=== PATIENT | female | born 1980 | race African-American/Black ===

== ENCOUNTER 2020-04-16 08:56 | Inpatient (IN) | payer BC ==
[~2020-04-16] VITALS: Ht 152.4 cm; Wt 70.7 kg
--- NOTE | ~2020-04-16 | O ---
[facility] [place] [address] OPERATIVE REPORT Name: SHERWIN CALIX Room #: 433-I ADM IN M.R.#: [id number] Admission: 04/16/20 Attend Phys: Jem Richter, Discharge: Date of : 82 Report #: [id number] THIS REPORT FOR: cc: [facility] - Clinic physician unknown [facility] - Clinic physician unknown Jem Richter MD ~ CC: [facility] unknown Jem Richter DATE OF SERVICE: 04/18/2020 PREOPERATIVE DIAGNOSIS: Acute cholecystitis. POSTOPERATIVE DIAGNOSIS: Acute cholecystitis. OPERATION: Laparoscopic cholecystectomy. SURGEON: Jem Richter MD ANESTHESIA: General. ESTIMATED BLOOD LOSS: 20 mL. SPECIMEN: Gallbladder. DESCRIPTION OF PROCEDURE: After informed consent was obtained, the patient was brought to the operating room and placed supine. SCDs were placed and working, preoperative antibiotics were administered, general anesthesia was induced. The abdomen was prepped and draped in the usual sterile fashion. A 10 mm incision was made below the umbilicus. Fascia was incised and a trocar was placed. Pneumoperitoneum was established. Three right upper quadrant 5 mm ports were placed. The gallbladder was grasped and retracted cephalad. There was very tense and edematous due to cholecystitis and therefore was decompressed with a decompressing needle. The gallbladder was then retracted superiorly. The infundibulum was grasped and retracted laterally. I dissected out the cystic duct and cystic artery. I dissected out the cystic plate fully. The cystic duct and artery were clipped and ligated, leaving 2 clips on the remaining duct and one on the remaining artery. Gallbladder was then taken off the liver bed with electrocautery. It was placed into an Endopouch and removed. The fascia was then closed with a [id number] 0 Vicryl. Skin was closed with 4-0 Monocryl. Incisions were sealed with Dermabond. COMPLICATIONS: None. [facility] [address] [place] [address] OPERATIVE REPORT Name: SHERWIN CALIX ADIN Room #: 433-I [facility] IN ..#: [id number] Admission: 04/16/20 Attend Phys: Jem Richter, Discharge: Date of : 82 Report #: [id number] DISPOSITION: The patient was taken to recovery in satisfactory condition. By: 1229 [id number] Jem Richter MD /nt
[~2020-04-16 08:56] MED LIST: CEPACOL SORE T1 EAC2 MM; FLAGYL500 MG PO; NAPROSYN500 MG PO
[2020-04-16 09:04] VITALS: BP 114/79
[2020-04-16 09:33] LABS: ABSOLUTE NEUTROPHILS 9.1 thou/uL (1.4-8.2); BASOPHILS 0.4 % (0.0-2.0); EOSINOPHILS 0.3 % (0.0-3.0); HEMATOCRIT 38.2 % (37.0-47.0); HEMOGLOBIN 12.7 gm/dL (12.0-15.0); LYMPHOCYTES 14.6 % (24.0-44.0); MCH 28.5 pg (26.0-34.0); MCHC 33.3 g/dL (28.0-37.0); MCV 85.6 fL (80.0-100.0); MONOCYTES 11.2 % (1.0-8.0); PLATELET COUNT 229 thou/uL (150-400); POLYS 73.5 % (36.0-66.0); RBC 4.46 mil/uL (4.20-5.00); RDW 13.5 % (10.5-14.5); WBC 12.3 thou/uL (4.0-11.0)
[2020-04-16 09:34] LABS: URINE BILIRUBIN NEGATIVE (Negative); URINE BLOOD TRACE (Negative); URINE CLARITY CLEAR; URINE COLOR YELLOW; URINE GLUCOSE-RANDOM* NEGATIVE (Negative); URINE KETONES NEGATIVE (Negative); URINE LEUKOCYTES-REFLEX NEGATIVE (Negative); URINE NITRITE-REFLEX NEGATIVE (Negative); URINE PROTEIN (DIPSTICK) NEGATIVE (Negative); URINE SPECIFIC GRAVITY >= 1.030 (1.005-1.035); URINE UROBILINOGEN 0.2 E.U./dl (0.2-1.0)
[2020-04-16 09:43] LABS: ANION GAP 9 mmol/L (7-16); BUN 11 mg/dL (7-18); CALCIUM 8.5 mg/dL (8.5-10.1); CHLORIDE 103 mmol/L (98-107); CO2 26 mmol/L (21-32); CREATININE 0.7 mg/dL (0.6-1.0); GLUCOSE 104 mg/dL (74-106); POTASSIUM 3.5 mmol/L (3.5-5.1); SODIUM 138 mmol/L (136-145)
[2020-04-16 09:55] LABS: ALBUMIN 3.6 g/dL (3.4-5.0); LIPASE 53 U/L (73-393); SGOT 14 U/L (15-37); SGPT 44 U/L (30-65); TOTAL BILIRUBIN 0.8 mg/dL (<0.1-1.0); TOTAL PROTEIN 7.7 g/dL (6.4-8.2); TROPONIN-I <0.06 ng/mL (<0.06)
[2020-04-16 11:59] VITALS: BP 114/47
--- NOTE | 2020-04-16 12:07 | NUR ---
FIRST ATTEMPT TO GIVE REPORT AT 1209
--- NOTE | 2020-04-16 12:08 | EKG ---
[facility] [place] [address] ELECTROCARDIOGRAM REPORT Name: SHERWIN CALIX Room #: 170-8 ADM IN M.R.#: [id number] Admission: 04/16/20 Attend Phys: Jem Richter, Discharge: Date of : 82 Report #: [id number] THIS REPORT FOR: cc: [facility] - Clinic physician unknown [facility] - Clinic physician unknown Dustin Mares MD ~ THIS REPORT FOR: //name// [facility] ED Test Date: 2020-04-16 Test Time: 09:38:33 Pat Name: SHERWIN CALIX Department: Room: [facility] Gender: F Superintendent Factory: shasta : 1980 Requested By: Guy Proctor Order Number: [id number] MD: Dustin Mares Measurements Intervals [place] Rate: 81 P: 72 OK: 141 QRS: 37 QRSD: 78 T: 34 QT: 338 QTc: 393 Interpretive Statements Sinus rhythm No previous ECG available for comparison Electronically Signed On 04-16-2020 12:06:52 CDT by Dustin Mares [email or web address] <ELECTRONICALLY SIGNED> By: Dustin Mares MD 04/16/20 1206 0938 7 Dustin Mares MD /JASS
[2020-04-16 12:22] VITALS: BP 114/47
[2020-04-16 13:23] VITALS: BP 130/72
--- NOTE | 2020-04-16 15:08 | NUR ---
Patient admitted to this unit from ER for right upper abdominal pain. Dx: Cholecystitis. Patient arrived on unit at 1324. She requested and received Morphine 4mg/1mL per IV push at approximately 1345 for right upper abdominal pain , "level eight." This reduced pain level to a "five." Patient placed on Clear Liquids; she is to be NPO after Midnight for Cholesystectomy. Patient verbalizes an understanding of this. Vital signs stable, LSCTA, BS x's 4, abdomen distended and tender, skin is clean, warm, dry and intact. Will continue to monitor.
[2020-04-16 19:40] VITALS: BP 126/85
--- NOTE | 2020-04-17 02:32 | NUR ---
RECIEVED CARE OF THIS PATIENT AT 1900. PATIENT ALERT ANDORIENTED X4. PATIENT UP AD ERIKA. PATIENT TRANSFERRED TO 433 ON 4S AT 2300. REPORT WAS CALLED TO RN ON 4S.
--- NOTE | 2020-04-17 03:17 | NUR ---
PT TRANSFERRED FROM AT APPROX 2300. MORPHINE PROVIDING PAIN RELIEF. DENIES NAUSEA. PLAN FOR LAP IVANA 04/17. RESTING COMFORTABLY. NO NEEDS VOICED. CALL LIGHT WITHIN REACH. FREQUENT OBSERVATION.
[2020-04-17 05:34] VITALS: BP 121/71
[2020-04-17 08:00] VITALS: BP 113/74
--- NOTE | 2020-04-17 12:20 | NUR ---
PATIENT WAS COVID 19 TESTED SPECIMEN TAKEN TO LAB. SURGERY POSTPONED TO 04/18/20 DR GERARD TO DO SCEDULED FOR 11.00. PT TO EAT REGULAR DIET TODAY AND BE NPO AT MIDNIGHT. DR MEDEIROS PUT PATIENT ON IV ABT.
--- NOTE | 2020-04-17 15:15 | NUR ---
LAB CALLED COVID 19 TEST IS NEGATIVE
[2020-04-17 19:05] VITALS: BP 126/87
--- NOTE | 2020-04-17 19:21 | NUR ---
PATIENT CALLED WITH THIS NURSE PRESENT TO TALK AND UPDATE ABOUT PATIENT'S CONDITION AND PROGRESS.
[2020-04-18] VITALS (7 sets, daily range): BP systolic 113–152; BP diastolic 67–91
--- NOTE | 2020-04-18 05:03 | NUR ---
RECIEVED CARE OF THIS PATIENT AT 1900. PATIENT ALERT AND ORIENTED X4. UP AD ERIKA. C/O PAIN IN ABD, MED GIVEN WITH SOME RELIEF. NPO SINCE WI FOR SURGERY TODAY. SLEPT OFF AND ON DURING NIGHT.
--- NOTE | 2020-04-18 18:32 | NUR ---
VSS-AFEBRILE. LUNGS CLEAR-ROOM AIR. ABDOMINAL INCISIONS INTACT, AND WITHOUT DRAINAGE. TOLERATING PO MEDICATIONS AND SOFT DIET WITH NO REPORTED MAUSEA/VOMITING. PAIN IS WELL CONTROLLED WITH PRESCRIBED IV AND PO PAIN MEDICATION. OOB AD ERKIA-STEADY ON FEET. NO DIFFICULTY VOIDING. CALLS APPROPRIATELY FOR ANY NEEDED ASSISTANCE.
--- NOTE | 2020-04-19 02:31 | NUR ---
ASSESSED AT START OF SHIFT PT A&OX4. C/O PAIN IN ABD OF 06/02 MANAGED WITH PO HYDROCODONE AND IV MORPHINE. DENIES N/V. UP AD ERIKA IN THE ROOM. IV INTACT AND FLUIDS INFUISING. CALLS APPROPRIATELY. CLEAR LUNGS SOUNDS. WILL CONT TO MONITOR TILL EOS.
[2020-04-19 04:51] VITALS: BP 132/77
[2020-04-19 07:41] VITALS: BP 126/52
[2020-04-19 07:45] VITALS: BP 131/74
[2020-04-19 15:40] VITALS: BP 120/83
--- NOTE | 2020-04-19 16:08 | PATH ---
[facility] [address] [place] [address] PATHOLOGY RPT PROCEDURE Name: NICHOLAS MANJARREZ Room #: 433-I ADM IN M.R.#: [id number] Admission: 04/16/20 Date of : 82 Discharge: Report #: [id number] Path Case #: [id number] [facility] Accession Number: [id number] . 01 Material submitted: . gallbladder - GALLBLADDER . 01 Clinical history: . Acute Cholecystitis . 02 Diagnosis: Gallbladder, cholecystectomy: - Ulcerated acute and gangrenous cholecystitis. - Cholelithiasis. - Focal unremarkable hepatic parenchyma identified at gallbladder bed. (IUV:emeka; 04/19/2020) QMS 04/19/2020 1427 Local . 02 Electronically signed: . Trinity Mark MD, Pathologist NPI- [id number] . 01 Gross description: . The specimen is received in formalin, labeled "Nicholas Manjarrez, gallbladder" and consists of a previously opened pink-schafer gallbladder measuring 9.8 x 2.3 x 2.4 cm. The margin is inked. It contains a yellow spiculated calculi measuring 1.4 cm in diameter. The mucosa is hemorrhagic brown and granular with a wall thickness of 0.1 cm. No gross lesions are identified. Tag Marker sections are submitted in A1. (RANJAN; 04/18/2020) ASHLYN/ASHLYN 04/19/[address] [place] [address] . 02 Pathologist provided ICD-10: K80.00 . 02 CPT . 307683 Specimen Comment: A courtesy copy of this report has been sent to [phone] Specimen Comment: Report sent to Performed at: [address], [place] [id number] MD Jared Thompson MD Phone: [phone] Performed at: [address] [id number] MD Trinity Mark MD Phone: [phone]
--- NOTE | 2020-04-19 19:53 | NUR ---
VSS-AFEBRILE. LUNGS CLEAR-ROOM AIR. ABDOMINAL INCISIONS INTACT WITH NO DRAINAGE, OOB AD ERIKA-STEADY ON FEET. GOOD PAIN RELIEF WITH ALTERNATING IV AND PO PAIN MEDICATIONS. GOOD APPETITE, NO REPORTED NAUSEA AND VOMITING. CALLS APPROPRIATELY FOR ANY NEEDED ASSISTANCE.
[2020-04-19 20:22] VITALS: BP 131/86
--- NOTE | 2020-04-20 02:07 | NUR ---
ASSESSED AT START OF SHIFT. PT RESTING IN BED. DENIES N/V C/O PAIN 08/03 MANAGED WITH IV AND PO PAIN MED SEE EMAR. UP AD ERIKA IN ROOM. TOOK A SHOWER EARLIER IN THE DAY STARTED IT HELPED WITH PAIN. ABD INCISION INTACT WITH NO DRAINAGE. ANTICIPATING D/C TOMORROW. CALL LIGHT IN REACH AND WILL CONT TO MONITOR.
[2020-04-20 04:35] VITALS: BP 126/80
[2020-04-20 08:00] VITALS: BP 122/74
--- NOTE | 2020-04-20 09:46 | NUR ---
noted in chart per MD, possible dc home today. she stayed rt pain control after lap chol. home no needs.
[2020-04-20 12:36] VITALS: BP 122/74
--- NOTE | 2020-04-20 14:18 | NUR ---
VSS-AFEBRILE. LUNGS CLEAR-ROOM AIR. ABDOMINAL INCISIONS INTACT, NO DRAINAGE. DISCUSSED DC INSTRUCTIONS, VERBALIZED UNDERSTANDING OF ALL DISCUSSED MATERIAL. AMBULATES INDEPENDENTLY-STEADY ON FEET. PROVIDED PAPER SCRIPTS. LEFT UNIT IN WHEELCHAIR WITH ALL PERSONAL BELONGINGS. 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
[2020-04-20 14:23] VITALS: BP 122/74
== END 2020-04-20 14:24 | disposition home or self-care (01) | DRG 419 ==
LOC: ER 08:56 → 4S 11:51 → EROBS 11:51 → 4W 12:23 → 4S 04-17 00:48
PROVIDERS: Emergency Medicine; ADMIT Surgery
PROC: 0FT44ZZ Resection of Gallbladder, Percutaneous Endoscopic Approach (ICD-10-PCS; principal; 2020-04-18)
DX: K81.0 Acute cholecystitis (principal); Z79.899 Other long term (current) drug therapy
CPT/HCPCS: 10040; 10195; 50010; 50101; 50411; 50555; 50900; 51489; 52265; 52266; 52287; 53307; 53312; 53314; 54118; 55245; 56462; 56525; 56526; 62110; 62900; 70005

== ENCOUNTER 2020-10-04 08:24 | Emergency (ER) | payer BC ==
[~2020-10-04] VITALS: Ht 152.4 cm; Wt 70.3 kg
[2020-10-04 08:42] LABS: URINE BILIRUBIN NEGATIVE (Negative); URINE BLOOD 3+ (Negative); URINE CLARITY SL CLOUDY; URINE COLOR YELLOW; URINE GLUCOSE-RANDOM* NEGATIVE (Negative); URINE KETONES NEGATIVE (Negative); URINE NITRITE-REFLEX NEGATIVE (Negative); URINE PROTEIN (DIPSTICK) TRACE (Negative); URINE SPECIFIC GRAVITY >= 1.030 (1.005-1.035); URINE UROBILINOGEN 0.2 E.U./dl (0.2-1.0)
[2020-10-04 08:44] LABS: URINE LEUKOCYTES-REFLEX 2+ (Negative)
[2020-10-04 08:55] LABS: SQUAMOUS 4-10 Moderate /LPF (0-3)
[2020-10-04 08:57] LABS: CASTS None Seen /LPF (None Seen); CRYSTALS None Seen /LPF (None Seen); URINE RBC 0-2 Rare /HPF (0-2)
[2020-10-04 08:58] LABS: BACTERIA-REFLEX 1-9 Few /HPF (None Seen); URINE WBC-REFLEX 6-15 Few /HPF (0-5)
[2020-10-04] MEDS ORDERED: ZOFRAN ODT4 MG PO (09:00)
[2020-10-04] MEDS ORDERED: KEFLEX500 M1 PO (09:00)
[2020-10-04] MEDS ORDERED: PYRIDIUM200 MG PO (09:00)
[2020-10-04 09:21] VITALS: BP 128/89
== END 2020-10-04 09:25 | disposition home or self-care (01) ==
LOC: ER 08:24
PROVIDERS: Emergency Medicine
DX: N30.90 Cystitis, unspecified without hematuria (principal)

== ENCOUNTER 2020-10-27 08:52 | Emergency (ER) | payer BC ==
[~2020-10-27] VITALS: Ht 152.4 cm; Wt 72.6 kg
[~2020-10-27 08:52] MED LIST changes: +KEFLEX500 M1 PO; +PYRIDIUM200 MG PO; +ZOFRAN ODT4 MG PO
[2020-10-27 08:58] VITALS: BP 118/87
[2020-10-27 09:27] LABS: URINE BILIRUBIN NEGATIVE (Negative); URINE BLOOD NEGATIVE (Negative); URINE CLARITY CLEAR; URINE COLOR YELLOW; URINE GLUCOSE-RANDOM* NEGATIVE (Negative); URINE KETONES NEGATIVE (Negative); URINE NITRITE-REFLEX NEGATIVE (Negative); URINE PROTEIN (DIPSTICK) NEGATIVE (Negative); URINE SPECIFIC GRAVITY >= 1.030 (1.005-1.035); URINE UROBILINOGEN 0.2 E.U./dl (0.2-1.0)
[2020-10-27 09:28] LABS: URINE LEUKOCYTES-REFLEX 1+ (Negative)
[2020-10-27 09:39] LABS: CASTS None Seen /LPF (None Seen); CRYSTALS None Seen /LPF (None Seen); SQUAMOUS >10 Many /LPF (0-3)
[2020-10-27 09:40] LABS: URINE RBC None Seen /HPF (0-2)
[2020-10-27 10:56] LABS: ABSOLUTE NEUTROPHILS 5.4 thou/uL (1.4-8.2); BASOPHILS 1.1 % (0.0-2.0); EOSINOPHILS 3.4 % (0.0-3.0); HEMOGLOBIN 13.3 gm/dL (12.0-15.0); LYMPHOCYTES 17.2 % (24.0-44.0); MCH 28.5 pg (26.0-34.0); MCHC 33.2 g/dL (28.0-37.0); MCV 85.6 fL (80.0-100.0); MONOCYTES 6.8 % (1.0-8.0); PLATELET COUNT 225 thou/uL (150-400); POLYS 71.5 % (36.0-66.0); RBC 4.67 mil/uL (4.20-5.00); RDW 14.2 % (10.5-14.5); WBC 7.6 thou/uL (4.0-11.0)
[2020-10-27 11:05] LABS: CALCIUM 9.7 mg/dL (8.5-10.1); CREATININE 0.7 mg/dL (0.6-1.0)
[2020-10-27 11:11] LABS: ALBUMIN 3.6 g/dL (3.4-5.0); TOTAL BILIRUBIN 0.4 mg/dL (0.2-1.0); TOTAL PROTEIN 7.6 g/dL (6.4-8.2)
[2020-10-27] MEDS ORDERED: BACTRIM DS TAB1 EACH PO (12:19)
[2020-10-27] MEDS ORDERED: NAPROSYN500 MG PO (12:19)
[2020-10-27] MEDS ORDERED: PYRIDIUM200 MG PO (12:19)
[2020-10-27] MEDS ORDERED: FLAGYL500 M1 PO (12:32)
[2020-10-27] MEDS ORDERED: METROGEL-VAGINA70 GM VAG (12:37)
== END 2020-10-27 12:45 | disposition home or self-care (01) ==
LOC: ER 08:52
PROVIDERS: Emergency Medicine
DX: N39.0 Urinary tract infection, site not specified (principal); N89.8 Other specified noninflammatory disorders of vagina; K59.00 Constipation, unspecified; F41.9 Anxiety disorder, unspecified; Z90.49 Acquired absence of other specified parts of digestive tract